=== PATIENT | female | born 1965 | race African-American/Black ===

== ENCOUNTER 2020-04-18 23:12 | Inpatient (IN) | payer MEDICARE, MEDICAID ==
[~2020-04-18] VITALS: Ht 177.8 cm; Wt 104.6 kg
[2020-04-18] MEDS ORDERED: ONDANSETRON HCL 4 MG/2 ML VIAL IV ONE (23:45)
[2020-04-18] MEDS ORDERED: MORPHINE SULFATE 4 MG/ML SYR/VIAL IV ONE (23:45)
[2020-04-18] MEDS ORDERED: SODIUM CHLORIDE 0.9% 1,000 ML IV ONE (23:45)
[2020-04-19 00:03] LABS: Basophils # (auto) 0.1 10 ^3/uL (0-0.2); Basophils % (auto) 0.9 % (0.0-2.0); Eosinophils # (auto) 0.3 10 ^3/uL (0-0.8); Eosinophils % (auto) 2.7 % (0.0-7.0); Hematocrit 42.2 % (36.0-46.0); Hemoglobin 14.2 g/dL (12.2-16.2); Lymphocytes # (auto) 2.8 10 ^3/uL (0.4-5.4); Lymphocytes % (auto) 23.7 % (10.0-50.0); Mean Corpuscular Hemoglobin 28.7 pg (28.0-32.0); Mean Corpuscular Hgb Conc. 33.8 g/dL (32.0-36.0); Monocytes # (auto) 0.8 10 ^3/uL (0-1.3); Monocytes % (auto) 6.3 % (0.0-12.0); Neutrophils # (auto) 7.9 10 ^3/uL (1.6-8.6); Neutrophils % (auto) 66.4 % (37.0-80.0); Nucleated Red Blood Cells % 0.1 %; Platelet Count (auto) 284 10^3/uL (140-450); Red Blood Cells 4.96 10^6/uL (4.0-5.20); Red Cell Distribution Width 13.9 % (11.8-14.3); White Blood Cell 11.9 10^3/uL (4.4-10.8)
[2020-04-19 00:19] LABS: INR 0.96 (0.9-1.15); Partial Thromboplastin Time 25.9 sec (23.0-31.2)
[2020-04-19 00:22] LABS: Albumin 3.4 g/dL (3.4-5.0); Amylase 187 U/L (25-115); Anion Gap 5 (5-15); BUN/Creatinine Ratio 16.4; Blood Urea Nitrogen 18 mg/dL (7-18); Calcium 9.3 mg/dL (8.5-10.1); Carbon Dioxide 30 mmol/L (21-32); Chloride 103 mmol/L (98-107); GFR African American 66 mL/min; GFR Non-African American 55 mL/min; Glucose 88 mg/dL (74-106); Lipase 162 U/L (73-393); Magnesium 2.3 mg/dL (1.6-2.6); Sodium 138 mmol/L (136-145)
[2020-04-19 00:27] LABS: Alanine Aminotransferase 39 U/L (13-56); Alkaline Phosphatase 100 U/L (45-117); Aspartate Aminotransferase 18 U/L (15-37); Bilirubin, Total 0.3 mg/dL (0.2-1.0); Total Protein 8.3 g/dL (6.4-8.2)
[2020-04-19] MEDS ORDERED: IOHEXOL 300 MG/ML 100ML BOTTLE IJ ONE (02:58)
[2020-04-19] MEDS ORDERED: SODIUM CHLORIDE 0.9% 1,000 ML IV ONE (03:00)
[2020-04-19] MEDS ORDERED: CIPROFLOXACIN 400MG/200ML 200 ML IV ONE (07:15)
[2020-04-19] MEDS ORDERED: metroNIDAZOLE 500MG/100ML 100 ML IV ONE ×2 (07:15→11:00)
[2020-04-19] MEDS ORDERED: MORPHINE SULF INJ 2 MG/ML SYRINGE 1ML IV PRN ×4 (10:15→11:00)
[2020-04-19] MEDS ORDERED: NITROGLYCERIN 0.4 MG SL TAB SL PRN ×2 (10:15→11:00)
[2020-04-19] MEDS ORDERED: SODIUM CHLORIDE 0.9% 1,000 ML IV SCH (10:30)
[2020-04-19] MEDS ORDERED: ONDANSETRON HCL 4 MG/2 ML VIAL IV ONE (10:30)
[2020-04-19] MEDS ORDERED: ALUM & MAG HYDROX-SIMETH LIQ(MAALOX) 30 ML PO PRN (11:00)
[2020-04-19] MEDS ORDERED: HYDROcodone-ACET 5/325MG TAB PO PRN (11:00)
[2020-04-19] MEDS ORDERED: LORazepam 0.5 MG TAB PO PRN (11:00)
[2020-04-19] MEDS ORDERED: PANTOPRAZOLE 40 MG/10 ML VIAL INJ IV ONE (11:00)
[2020-04-19] MEDS ORDERED: DOCUSATE SOD 100 MG CAP PO PRN (11:00)
[2020-04-19] MEDS ORDERED: ONDANSETRON HCL 4 MG/2 ML VIAL IV PRN (11:00)
[2020-04-19] MEDS ORDERED: ALBUAER3 IN (11:26)
[2020-04-19] MEDS ORDERED: ESCI20TA51 PO (11:26)
[2020-04-19] MEDS ORDERED: OMEP-335 PO (11:26)
[2020-04-19] MEDS ORDERED: CHOL100029 PO (11:26)
[2020-04-19] MEDS: SODIUM CHLORIDE 0.9% 1,000 ML IV SCH ×2 (11:26→21:29)
[2020-04-19] MEDS ORDERED: LISI-707 PO (11:26)
[2020-04-19] MEDS ORDERED: PROP20TA73 PO (11:26)
[2020-04-19] MEDS ORDERED: MULT-1058 PO (11:27)
[2020-04-19] MEDS ORDERED: PYRI25TA16 PO (11:27)
[2020-04-19] MEDS: metroNIDAZOLE 500MG/100ML 100 ML IV SCH ×2 (12:19→21:36)
[2020-04-19] MEDS ORDERED: PROMETHAZINE HCL 25 MG/ML 1ML IV ONE (12:30)
[2020-04-19] MEDS ORDERED: METOPROLOL SUCCINATE XL 50 MG TAB PO ONE (13:30)
[2020-04-19] MEDS ORDERED: hydrALAZINE HCL 25 MG TAB PO PRN (13:30)
[2020-04-19] MEDS ORDERED: ALBUTEROL SULF 2.5 MG/0.5ML(0.5%) NEB SOLN NEB PRN (13:30)
[2020-04-19 14:40] LABS: Cholesterol 154 mg/dL (< 200); HDL Cholesterol 56 mg/dL (40-59); LDL Cholesterol 85 mg/dL (< 100); Triglycerides 63 mg/dL (< 150)
--- NOTE | 2020-04-19 15:50 | NUR ---
Respiratory note: PT SEEN AND ASSESSED FOR PRN MEDNEB TX. HR 84, RR 16, SPO2 97% ON ROOM AIR. BREATH SOUNDS CLEAR T/O. PT DENIES SOB, NO S/S OF DISTRESS. NOTIFIED PT THAT SHE HAS PRN TXS, ADVISED PT TO CALL FOR RT IF NEEDED. PT VERBALIZED UNDERSTANDING.
[2020-04-19 15:56] VITALS: BP 141/81
[2020-04-19 16:32] VITALS: BP 133/73
--- NOTE | 2020-04-19 19:10 | NUR ---
PT ASSESSED, PRN TX NOT INDICATED AT THIS TIME. BS CLEAR BILATERALLY, SAT 97% ON RA. NO SOB NOTED.
--- NOTE | 2020-04-19 19:30 | NUR ---
Opening Shift Note Assumed care of patient, awake and alert. No S/S of distress/SOB or pain. Insructed on POC and to callfor assist PRN, will continue to monitor for changes Q1hr and PRN.
[2020-04-19 20:00] VITALS: BP 125/69
[2020-04-19] MEDS: CIPROFLOXACIN 400MG/200ML 200 ML IV SCH (21:40)
[2020-04-19 21:54] VITALS: BP 125/69
[2020-04-20] VITALS (8 sets, daily range): BP systolic 120–153; BP diastolic 66–82
[2020-04-20] MEDS: metroNIDAZOLE 500MG/100ML 100 ML IV SCH (05:53)
[2020-04-20] MEDS: ACETAMINOPHEN 325 MG TAB PO PRN ×2 (05:57→14:58)
[2020-04-20] MEDS ORDERED: PANTOPRAZOLE 40 MG/10 ML VIAL INJ IV SCH (10:00)
[2020-04-20] MEDS ORDERED: ENOXAPARIN SOD 40 MG/0.4 ML SYRINGE SC SCH (10:00)
[2020-04-20] MEDS ORDERED: CITALOPRAM HYDROBR 20 MG TAB PO SCH (10:00)
[2020-04-20] MEDS: CIPROFLOXACIN 400MG/200ML 200 ML IV SCH (10:17)
[2020-04-20] MEDS: CHOLECALCIFEROL (VITD3) 1,000UNIT=25mCg TAB PO SCH (10:22)
[2020-04-20] MEDS: HCTZ 25 MG TAB PO SCH (10:24)
[2020-04-20] MEDS: METOPROLOL SUCCINATE XL 50 MG TAB PO SCH (10:25)
[2020-04-20] MEDS: MULTIPLE VITAMINS W/ MINERALS TAB PO SCH (10:26)
[2020-04-20] MEDS: LISINOPRIL 10 MG TAB PO SCH (10:27)
[2020-04-20] MEDS: PYRIDOXINE HCL 50 MG TAB PO SCH (10:27)
--- NOTE | 2020-04-20 13:10 | NUR ---
PATIENT ACCIDENTALLY PULLED OUT HER IV AND WITH OLD CATH TIP INTACT. PRESSURE WAS APPLIED ON THE SITE AND DRY DRESSINGS APPLIED AFTER. PATIENT REFUSED TO HAVE ANOTHER IV INSERTED AT THIS TIME SHE WANTED TO KNOW IF MD WILL DISCHARGE HER TODAY. PATIENT ALSO SIGNED AMA FOR SMOKING TO LEAVE UNIT SHE WANTED TO HAVE SOME FRESH AIR. WILL CONTINUE TO MONITOR PATIENT.
--- NOTE | 2020-04-20 13:20 | NUR ---
PATIENT NOTED TO HAVE RETURNED TO HER ROOM. PATIENT STATED THAT SHE FELT BETTER. PATIENT WAITING FOR MD TO SEE HER.
[2020-04-20] MEDS ORDERED: metroNIDAZOLE 500 MG TAB PO ONE (15:45)
--- NOTE | 2020-04-20 15:50 | NUR ---
MD AT BEDSIDE DR. ROMO WAS IN TO SEE PATIENT AND MD GAGE LEFT NEW ORDERS. PATIENT TALKED TO MD IF SHE CAN HAVE NO IV ACCESS AT THIS TIME AND MD STATED THAT IT IS OKAY.
[2020-04-20 17:56] LABS: Urine Bacteria NONE SEEN /hpf (None Seen); Urine Blood Negative /uL (Negative); Urine Specific Gravity 1.004 (1.001-1.035); Urine WBC 5 /hpf (0 - 5)
[2020-04-20 18:18] LABS: Alcohol, Urine < 3.0 mg/dL (0-10); Amphetamine Screen, Urine NEGATIVE (NEGATIVE); Barbiturate Scree,Urine NEGATIVE (NEGATIVE); Benzodiazephine Screen, Urine NEGATIVE (NEGATIVE); Cannabinoid Screen, Urine NEGATIVE (NEGATIVE); Cocaine Screen, Urine NEGATIVE (NEGATIVE); Opiate Scree,Urine NEGATIVE (NEGATIVE); Phencyclidine Screen, Urine NEGATIVE (NEGATIVE)
[2020-04-20] MEDS: metroNIDAZOLE 500 MG TAB PO SCH (21:50)
[2020-04-20] MEDS: CIPROFLOXACIN HCL 500 MG TAB PO SCH (21:50)
[2020-04-21] MEDS: ACETAMINOPHEN 325 MG TAB PO PRN (00:42)
[2020-04-21 05:00] VITALS: BP 133/73
[2020-04-21] MEDS: metroNIDAZOLE 500 MG TAB PO SCH ×3 (05:37→22:00)
--- NOTE | 2020-04-21 06:46 | NUR ---
PT. ASSESSED FOR PRN. MN. TX., NO RESP. DISTRESS OR SOB NOTED AT THIS TIME. PT. IS AWAKE AND ALERT, BS. ARE CLEAR, HR 71, RR 18, SP02 96% ON RA. PRN. TX NOT INDICATED AT THIS TIME. INSTRUCTED PT. TO CALL IF NEEDED. TX. NOT GIVEN.
--- NOTE | 2020-04-21 07:15 | NUR ---
Opening Shift Note: Assumed care of patient, awake and alert. No S/S of distress/SOB. Patient states headache 5/10. per patient "the Tylenol is not helping, but I don't want the morphine." Educated patient no other medications are available, will speak to MD. Bed in lowest locked position, side rails up x 2, call light within reach. Patient instructed on POC and to call for assistance PRN, will continue to monitor for changes Q1hr and PRN.
[2020-04-21 07:26] LABS: Basophils # (auto) 0.1 10 ^3/uL (0-0.2); Basophils % (auto) 1.1 % (0.0-2.0); Eosinophils # (auto) 0.4 10 ^3/uL (0-0.8); Eosinophils % (auto) 4.9 % (0.0-7.0); Hematocrit 41.3 % (36.0-46.0); Lymphocytes # (auto) 2.3 10 ^3/uL (0.4-5.4); Mean Corpuscular Hemoglobin 28.8 pg (28.0-32.0); Mean Corpuscular Hgb Conc. 33.9 g/dL (32.0-36.0); Mean Corpuscular Volume 85.1 fL (80.0-100.0); Monocytes # (auto) 0.5 10 ^3/uL (0-1.3); Monocytes % (auto) 6.5 % (0.0-12.0); Neutrophils # (auto) 4.4 10 ^3/uL (1.6-8.6); Neutrophils % (auto) 57.5 % (37.0-80.0); Nucleated Red Blood Cells % 0.2 %; Platelet Count (auto) 236 10^3/uL (140-450); Red Blood Cells 4.85 10^6/uL (4.0-5.20); Red Cell Distribution Width 13.6 % (11.8-14.3); White Blood Cell 7.6 10^3/uL (4.4-10.8)
[2020-04-21 07:42] LABS: BUN/Creatinine Ratio 17.3; Calcium 8.9 mg/dL (8.5-10.1); Potassium 3.4 mmol/L (3.5-5.1)
[2020-04-21 08:31] VITALS: BP 134/79
[2020-04-21] MEDS: CIPROFLOXACIN HCL 500 MG TAB PO SCH ×2 (09:29→22:00)
[2020-04-21] MEDS: MULTIPLE VITAMINS W/ MINERALS TAB PO SCH (09:29)
[2020-04-21] MEDS: LISINOPRIL 10 MG TAB PO SCH (09:30)
[2020-04-21] MEDS: METOPROLOL SUCCINATE XL 50 MG TAB PO SCH (09:30)
[2020-04-21] MEDS: HCTZ 25 MG TAB PO SCH (09:30)
[2020-04-21] MEDS: PANTOPRAZOLE 40 MG TAB PO SCH (09:30)
[2020-04-21] MEDS: CHOLECALCIFEROL (VITD3) 1,000UNIT=25mCg TAB PO SCH (09:31)
[2020-04-21] MEDS: PYRIDOXINE HCL 50 MG TAB PO SCH (09:49)
[2020-04-21 13:01] VITALS: BP 141/86
--- NOTE | 2020-04-21 13:10 | NUR ---
DR. CASTRO: DR. WEST AT BEDSIDE. DISCUSSED POC WITH PATIENT, PATIENT VERBALLY AGREED.
[2020-04-21] MEDS ORDERED: GOLYTELY 4L KIT PO ONE (13:15)
--- NOTE | 2020-04-21 13:18 | NUR ---
DR. CASTRO: DR. ROMO AT BEDSIDE. DISCUSSED POC WITH PATIENT. PATIENT VERBALLY AGREED. WILL CONTINUE TO MONITOR.
--- NOTE | 2020-04-21 14:15 | NUR ---
COVID SWAB OBTAINED AND WALKED TO LAB.
--- NOTE | 2020-04-21 14:20 | NUR ---
PATIENT PROVIDED WITH AND EDUCATED ON [facility] AT THIS TIME.
--- NOTE | 2020-04-21 15:30 | NUR ---
INHOUSE COVID SWAB OBTAINED. WALKED TO LAB.
--- NOTE | 2020-04-21 16:00 | NUR ---
IV insertion: IV access obtained, via clean sterile technique by inserting 20 gauge catheter at right forearm after 1 attempt. IV secured properly. No trauma to site. Patient tolerated well.
[2020-04-21 17:17] VITALS: BP 138/87
--- NOTE | 2020-04-21 18:46 | NUR ---
CLOSING NOTE: PATIENT RESTING IN BED. NO S/S OF DISTRESS. CARE ENDORSED.
[2020-04-21] MEDS: PROMETHAZINE HCL 25 MG/ML 1ML IV PRN (20:20)
[2020-04-21 21:55] VITALS: BP 150/86
[2020-04-22 05:40] VITALS: BP 143/73
[2020-04-22] MEDS: metroNIDAZOLE 500 MG TAB PO SCH ×2 (05:55→13:03)
[2020-04-22] MEDS ORDERED: GOLYTELY 4L KIT PO ONE (06:00)
[2020-04-22] MEDS: PROMETHAZINE HCL 25 MG/ML 1ML IV PRN (06:41)
[2020-04-22 07:59] LABS: Basophils # (auto) 0.1 10 ^3/uL (0-0.2); Basophils % (auto) 0.8 % (0.0-2.0); Eosinophils # (auto) 0.3 10 ^3/uL (0-0.8); Eosinophils % (auto) 3.5 % (0.0-7.0); Hematocrit 42.6 % (36.0-46.0); Hemoglobin 14.7 g/dL (12.2-16.2); Lymphocytes # (auto) 2.5 10 ^3/uL (0.4-5.4); Lymphocytes % (auto) 25.8 % (10.0-50.0); Mean Corpuscular Hemoglobin 29.2 pg (28.0-32.0); Mean Corpuscular Hgb Conc. 34.5 g/dL (32.0-36.0); Mean Corpuscular Volume 84.7 fL (80.0-100.0); Monocytes # (auto) 0.5 10 ^3/uL (0-1.3); Neutrophils # (auto) 6.2 10 ^3/uL (1.6-8.6); Neutrophils % (auto) 64.9 % (37.0-80.0); Nucleated Red Blood Cells % 0.2 %; Platelet Count (auto) 272 10^3/uL (140-450); Red Blood Cells 5.04 10^6/uL (4.0-5.20); Red Cell Distribution Width 14.1 % (11.8-14.3); White Blood Cell 9.5 10^3/uL (4.4-10.8)
[2020-04-22 08:17] LABS: BUN/Creatinine Ratio 9.8; Calcium 9.1 mg/dL (8.5-10.1)
[2020-04-22 08:35] VITALS: BP 154/87
[2020-04-22] MEDS ORDERED: SODIUM CHLORIDE LOCK 10 ML ONE (09:02)
[2020-04-22] MEDS ORDERED: diphenhdrAMINE HCL 50 MG/1 ML VL ONE (09:03)
[2020-04-22 09:11] VITALS: BP 141/76
[2020-04-22] MEDS: LISINOPRIL 10 MG TAB PO SCH (09:46)
[2020-04-22] MEDS: METOPROLOL SUCCINATE XL 50 MG TAB PO SCH (09:46)
--- NOTE | 2020-04-22 11:00 | NUR ---
PATIENT TAKEN DOWN TO PREOP.
[2020-04-22 11:14] VITALS: BP 140/74
[2020-04-22] MEDS: MIDAZOLAM HCL 5 MG/ML-1ML VIAL ONE ×3 (11:40→11:47)
[2020-04-22] MEDS: fentaNYL CITRATE 100 MCG/2 ML VL ONE ×3 (11:40→11:47)
[2020-04-22] MEDS: CIPROFLOXACIN HCL 500 MG TAB PO SCH (13:02)
[2020-04-22] MEDS: MULTIPLE VITAMINS W/ MINERALS TAB PO SCH (13:02)
[2020-04-22] MEDS: HCTZ 25 MG TAB PO SCH (13:02)
[2020-04-22] MEDS: PYRIDOXINE HCL 50 MG TAB PO SCH (13:03)
[2020-04-22] MEDS: CHOLECALCIFEROL (VITD3) 1,000UNIT=25mCg TAB PO SCH (13:03)
[2020-04-22] MEDS: PANTOPRAZOLE 40 MG TAB PO SCH (13:03)
[2020-04-22 13:29] VITALS: BP 118/70
[2020-04-22] MEDS ORDERED: CIPR250T3 PO (13:46)
--- NOTE | 2020-04-22 14:39 | NUR ---
waiting for patient prescription to be ready in pharmacy per Dr Euceda. Patient also waiting on her ride at approx. 4pm.
--- NOTE | 2020-04-22 16:04 | NUR ---
patient iv discontinued with catheter intact, patient given dc instructions, she verbalized understanding of follow up appointments, patient waiting on medication from pharmacy.
--- NOTE | 2020-04-22 16:20 | NUR ---
PATIENT DISCHARGED, PATIENT RECEIVED PRESCRIPTIONS.
[2020-04-22] MEDS ORDERED: CIPROFLOXACIN HYDROCHLORIDE 250 MG TAB PO SCH ×2 (22:00)
== END 2020-04-22 16:20 | disposition home or self-care (01) | DRG 391 ==
LOC: ER 23:12 → TELE 23:13 → TELE-WESTW 04-19 13:30
PROVIDERS: ADMIT Hospitalist; ATTEND Internal Medicine
PROC: 0DBL8ZZ Excision of Transverse Colon, Via Natural or Artificial Opening Endoscopic (ICD-10-PCS; principal; 2020-04-22 11:37)
DX: K52.9 Noninfective gastroenteritis and colitis, unspecified (principal); N17.0 Acute kidney failure with tubular necrosis; K57.92 Diverticulitis of intestine, part unspecified, without perforation or abscess without bleeding; N39.0 Urinary tract infection, site not specified; K57.32 Diverticulitis of large intestine without perforation or abscess without bleeding; N18.4 Chronic kidney disease, stage 4 (severe); K21.9 Gastro-esophageal reflux disease without esophagitis; E78.5 Hyperlipidemia, unspecified; E66.01 Morbid (severe) obesity due to excess calories; F32.9 Major depressive disorder, single episode, unspecified; J45.909 Unspecified asthma, uncomplicated; N20.0 Calculus of kidney; E87.6 Hypokalemia; I12.9 Hypertensive chronic kidney disease with stage 1 through stage 4 chronic kidney disease, or unspecified chronic kidney disease; K29.70 Gastritis, unspecified, without bleeding; G89.29 Other chronic pain; K63.5 Polyp of colon; Z82.49 Family history of ischemic heart disease and other diseases of the circulatory system; Z87.442 Personal history of urinary calculi; Z79.899 Other long term (current) drug therapy; Z79.891 Long term (current) use of opiate analgesic; Z79.01 Long term (current) use of anticoagulants; Z68.32 Body mass index [BMI] 32.0-32.9, adult
CPT/HCPCS: 36415; 71045; 74177; 80048; 80053; 80061; 80307; 81001; 82150; 83036; 83605; 83690; 83735; 83880; 84484; 85025; 85610; 85730; 86850; 86900; 86901; 87040; 87045; 87086; 87426; 87427; 93005; 96365; 96368; 96375; 96376; C9113; G0378; J2250; J2405; J3490

== ENCOUNTER 2020-04-23 23:28 | Emergency (ER) | payer MEDICARE, MEDICAID ==
[~2020-04-23] VITALS: Ht 180.3 cm; Wt 101.6 kg
[~2020-04-23 23:28] MED LIST: ALBUAER3 IN; CHOL100029 PO; ESCI20TA51 PO; LISI-707 PO; MULT-1058 PO; OMEP-335 PO; PROP20TA73 PO; PYRI25TA16 PO
[2020-04-24 01:14] LABS: Basophils # (auto) 0.1 10 ^3/uL (0-0.2); Basophils % (auto) 1.2 % (0.0-2.0); Eosinophils # (auto) 0.4 10 ^3/uL (0-0.8); Eosinophils % (auto) 4.2 % (0.0-7.0); Hematocrit 41.2 % (36.0-46.0); Hemoglobin 13.8 g/dL (12.2-16.2); Lymphocytes # (auto) 2.8 10 ^3/uL (0.4-5.4); Lymphocytes % (auto) 27.1 % (10.0-50.0); Mean Corpuscular Hemoglobin 28.4 pg (28.0-32.0); Mean Corpuscular Hgb Conc. 33.4 g/dL (32.0-36.0); Mean Corpuscular Volume 85.1 fL (80.0-100.0); Monocytes # (auto) 0.5 10 ^3/uL (0-1.3); Monocytes % (auto) 4.9 % (0.0-12.0); Neutrophils # (auto) 6.4 10 ^3/uL (1.6-8.6); Neutrophils % (auto) 62.6 % (37.0-80.0); Nucleated Red Blood Cells % 0.1 %; Platelet Count (auto) 268 10^3/uL (140-450); Red Blood Cells 4.84 10^6/uL (4.0-5.20); Red Cell Distribution Width 14.2 % (11.8-14.3); White Blood Cell 10.2 10^3/uL (4.4-10.8)
[2020-04-24 01:27] LABS: INR 1.01 (0.9-1.15); Partial Thromboplastin Time 25.9 sec (23.0-31.2)
[2020-04-24 01:29] LABS: Albumin 3.4 g/dL (3.4-5.0); BUN/Creatinine Ratio 14.7; Calcium 9.6 mg/dL (8.5-10.1); Potassium 4.6 mmol/L (3.5-5.1)
[2020-04-24 01:33] LABS: Bilirubin, Total 0.2 mg/dL (0.2-1.0); Total Protein 8.2 g/dL (6.4-8.2)
[2020-04-24] MEDS ORDERED: HYDROmorphone HCL 2 MG/ML VL IV ONE (03:00)
[2020-04-24] MEDS ORDERED: ONDANSETRON HCL 4 MG/2 ML VIAL IV ONE (03:00)
[2020-04-24 05:48] VITALS: BP 113/85
== END 2020-04-24 06:10 | disposition home or self-care (01) ==
LOC: ER 23:33
DX: M54.16 Radiculopathy, lumbar region (principal)
CPT/HCPCS: 36415; 74176; 80053; 85025; 85610; 85730; 96374; 96375; 99284; J1170; J2405